=== PATIENT | male | born 1955 | race Caucasian/White ===

== ENCOUNTER 2019-08-13 08:59 | Outpatient (CLI) | payer MEDICARE, OTHER, SELFPAY ==
--- NOTE | ~2019-08-13 | US_ITS ---
EXAMINATION: US venous doppler [facility] EXAM DATE: 08/13/2019 09:49 INDICATION: DVT follow-up. TECHNIQUE: Multiple grayscale, color flow and Doppler images of the left lower extremity deep venous system obtained and reviewed. Comparison is made to prior examination from 05/19/2019. FINDINGS: LEFT SIDE Common femoral: -------- Normal. Profunda femoral: ------- Normal. Femoral: Normal. Popliteal: Thrombosed. Posterior tibial: ---------Thrombosed. Peroneal: Normal. Gastrocnemius: Not visualized. Soleus: Not visualized. Greater saphenous: ----- Normal. Lesser saphenous: ------ Not visualized. IMPRESSION: 1. Persistent occlusive left popliteal and posterior tibial DVT. Reviewed, dictated and finalized at location B.
== END 2019-08-13 09:00 | disposition home or self-care (01) ==
PROVIDERS: PCP Internal Medicine; Visit Provider Internal Medicine Hematology & Oncology
DX: I82.432 Acute embolism and thrombosis of left popliteal vein (principal); I82.442 Acute embolism and thrombosis of left tibial vein
CPT/HCPCS: 93971

== ENCOUNTER 2019-11-16 10:18 | Outpatient (CLI) | payer MEDICARE, OTHER, SELFPAY ==
--- NOTE | ~2019-11-16 | US_ITS ---
EXAMINATION: US venous doppler [facility] DATE: 11/16/2019 10:56 INDICATION: Deep venous thrombosis TECHNIQUE: Iniguez scale images without and with compression and Doppler images of the left lower extrem ity veins were obtained. COMPARISON: 08/13/2019 FINDINGS: There are persistent thrombosis in the left posterior tibial and popliteal veins. The left common femoral vein, profunda femoral vein, femoral vein, popliteal vein, peroneal vein, and greater saphenous vein are patent. IMPRESSION: 1. Persistent thrombosis in the left popliteal and posterior tibial veins. Reviewed, dictated and finalized at location A.
== END 2019-11-16 10:19 | disposition home or self-care (01) ==
PROVIDERS: PCP Internal Medicine; Visit Provider Internal Medicine Hematology & Oncology
DX: I82.432 Acute embolism and thrombosis of left popliteal vein (principal)
CPT/HCPCS: 93971

== ENCOUNTER 2019-12-31 07:40 | Outpatient (CLI) | payer MEDICARE, OTHER, SELFPAY ==
--- NOTE | ~2019-12-31 | NM_ITS ---
EXAMINATION: NM fredy stress w perfusion DATE: 12/31/2019 12:56 INDICATION: Dyspnea on exertion. TECHNIQUE: Rest images were obtained following intravenous administration of 9.7 mCi Tc99m tetrofosmi n (Myoview). The patient was infused intravenously with Lexiscan (regadenoson). Then, 28.3 mCi Tc99m tetrofosmin (Myoview) was administered intravenously, and stress images were obtained. Data was recon structed into short axis and horizontal and vertical long axis SPECT images. Gated SPECT images were also obtained. The patient could not perform prone imaging. COMPARISON: None. FINDINGS: There is a moderate-sized, mild, fixed perfusion defect involving left ventricular apex and apical inferior, apical lateral, and mid inferolateral segments, consistent with infarct. No reversi ble component to suggest ischemia. There is no segmental wall motion abnormality. Left ventricular ejection fraction measures 63%. IMPRESSION: 1. Moderate-sized area of mild infarct involving left ventricular apex and apical inferior, apical la teral, and mid inferolateral segments. 2. Normal left ventricular ejection fraction measuring 63%. Reviewed, dictated and finalized at location A. IMPRESSION: 1. Moderate-sized area of mild infarct involving left ventricular apex and apic al inferior, apical lateral, and mid inferolateral segments. 2. Normal left ventricular ejection fraction measuring 63%.
--- NOTE | 2019-12-31 07:49 | EST_ITS ---
Patient Info Name: Dusty Felder Age: 64 years : 1955 Gender: Male Ht: 70 in Wt: 221 lbs BSA: 2.25 m2 Exam Date: 12/31/2019 10:13 AM Patient Status: Outpatient Admit Date: 12/31/2019 Staff Ordering Physician: Terence Mayen DO Attending Provider: Terence Mayen DO Exercise Technologist: Jazz York RDCS Exercise Physician: Terence Mayen DO Exam Type: CA stress fredy w NM Study Info Indications R06.00 - Dyspnea, unspecified A regadenoson stress test was performed. Summary 1. 1. Negative lexiscan stress test for ischemic ST changes by ECG criteria. 2. 2. Stable hemodynamics throughout the test. 3. 3. Nuclear scan to follow and will be reported separately. Please correlate with it. 4. 4. Patient informed of the above results. Protocol: Lexiscan Stress ECG Details Stage: REST Duration (min): 10 min : 21 sec HR (bpm): 62 SBP (mmHg): 130 DBP (mmHg): 72 Stage: REST Duration (min): 17 min : 47 sec HR (bpm): 67 SBP (mmHg): 130 DBP (mmHg): 72 Stage: STAGE 1 Duration (min): 1 min : 0 sec HR (bpm): 88 SBP (mmHg): 129 DBP (mmHg): 61 Stage: RECOVERY Duration (min): 1 min : 0 sec HR (bpm): 93 SBP (mmHg): 128 DBP (mmHg): 64 Stage: RECOVERY Duration (min): 2 min : 0 sec HR (bpm): 76 SBP (mmHg): 128 DBP (mmHg): 64 Stage: RECOVERY Duration (min): 3 min : 0 sec HR (bpm): 85 SBP (mmHg): 129 DBP (mmHg): 68 Stage: RECOVERY Duration (min): 3 min : 4 sec HR (bpm): 86 SBP (mmHg): 129 DBP (mmHg): 68 Rest HR: 67 bpm Peak HR: 97 bpm Rest Sys BP: 130 mmHg Peak Sys BP: 129 mmHg Max Pred HR: 154 bpm % Max Pred HR: 63 % Target HR: 131 bpm Max RPP: 12,513 bpm*mmHg Termination Reason: Completed protocol Cardiac Symptoms: None Total Time: 1 min : 0 sec Rest Bailon BP: 72 mmHg Peak Bailon BP: 68 mmHg Total Dose: 0.4 mg Resting ECG Sinus rhythm. Stress ECG No ST changes. Arrhythmias None. Report Signatures
--- NOTE | 2019-12-31 07:49 | ECHO_ITS ---
Patient Info Name: Dusty Felder Age: 64 years : 1955 Gender: Male Ht: 70 in Wt: 221 lbs BSA: 2.25 m2 HR: 67 bpm BP: 134 / 93 mmHg Technical Quality: Fair Exam Date: 12/31/2019 8:10 AM Exam Location: [facility] Patient Status: Outpatient Admit Date: 12/31/2019 Staff Ordering Physician: Terence Mayen DO Door Slinger: Jazz York RDCS Attending Provider: Terence Mayen DO Referring Physician: Faheem GLEZ; Exam Type: CA echo doppler color flow Study Info Indications R06.00 - Dyspnea, unspecified Complete two-dimensional, color flow and Doppler transthoracic echocardiogram is performed. Summary 1. Left ventricular chamber dimension is normal. 2. Left ventricular systolic function is normal, estimated at 55-60%. 3. The left ventricular diastolic function is grade I diastolic dysfunction. 4. E/e' 9 is minimally elevated. 5. There is mild aortic valve sclerosis. 6. Mobile echogenic mass measuring 0.9 cmx 0.5 cm seen attached to ventricular side of left coronary cusp suggestive of vegetation. Consider CHLOE for further evaluation of possible infective endocarditis. 7. There is trace tricuspid valve regurgitation. 8. No pulmonary hypertension, estimated pulmonary arterial systolic pressure is 27 mmHg. Left Ventricle E/e' 9 is minimally elevated. Left ventricular chamber dimension is normal. Left ventricular systolic function is normal, estimated at 55-60%. The left ventricular diastolic function is grade I diastolic dysfunction. Right Ventricle Right ventricular chamber dimension is normal. Right ventricular systolic function is normal. Left Atria Left atrial chamber dimension is normal. Right Atria Right atrial chamber dimension is normal. Aortic Valve Mobile echogenic mass measuring 0.9 cmx 0.5 cm seen attached to ventricular side of left coronary cusp suggestive of vegetation. Consider CHLOE for further evaluation of possible infective endocarditis. The aortic valve is trileaflet. There is mild aortic valve sclerosis. There is no aortic valve stenosis. There is no aortic valve regurgitation. Pulmonic Valve There is no pulmonic regurgitation. Mitral Valve There is no mitral valve stenosis. There is no mitral valve regurgitation. Tricuspid Valve There is trace tricuspid valve regurgitation. No pulmonary hypertension, estimated pulmonary arterial systolic pressure is 27 mmHg. Pericardium/Pleural There is no pericardial effusion. Inferior Vena Cava Normal inferior vena cava with >50% collapse upon inspiration consistent with normal right atrial pressure, 5 mmHg. Aorta The aortic root size at the sinus of Valsalva is normal. Left Ventricular Outflow Tract Name Value Normal LVOT 2D LVOT Diameter 2.3 cm LVOT Doppler LVOT Peak Gradient 4 mmHg LVOT Mean Gradient 2 mmHg LVOT VTI 20 cm LVOT VTI/AV VTI Ratio 0.9 LVOT Stroke Volume 79 ml LVOT CO 5.0 l/min LVOT CI
== END 2019-12-31 07:41 | disposition home or self-care (01) ==
PROVIDERS: PCP Internal Medicine; Visit Provider Internal Medicine Cardiovascular Disease
DX: R06.00 Dyspnea, unspecified (principal)
CPT/HCPCS: 78452; 93017; 93306; A9502; J2785

== ENCOUNTER 2020-01-01 13:57 | Outpatient (CLI) | payer MEDICARE, OTHER, SELFPAY ==
--- NOTE | ~2020-01-01 | XR_ITS ---
XR chest 2V 01/01/2020 15:30 Indication: Preop chest x-ray. Hypertension. Procedure: PA and lateral views of the chest Comparison: 08/21/2016 Findings: Left basilar atelectasis. Heart size normal. Right lung clear. No acute osseous abnormality . Impression: 1: Left basilar atelectasis. Reviewed, dictated and finalized at location A. Impression: 1: Left basilar atelectasis.
[2020-01-01 15:54] LABS: Basophils Percent Auto 0.4 % (0.2-1.2); Eosinophils Absolute Auto 0.1 K/mm3 (0-0.3); Hematocrit 42.5 % (42.0-52.0); Hemoglobin 14.4 g/dL (14.0-18.0); Immature Granulocyte Absolute 0.02 K/mm3 (0.00-0.031); Immature Granulocyte Percent A 0.4 % (0-0.5); Immature Platelet Fraction Pct 4.2 % (0.9-11.2); Lymphocytes Absolute Auto 0.89 K/mm3 (0.9-3.2); Lymphocytes Percent Auto 17.3 % (18.3-44.2); Mean Corpuscular HGB Conc 33.9 g/dl (32-36); Mean Corpuscular Hemoglobin 30.2 pg (26-34); Mean Corpuscular Volume 89.1 fl (80-100); Mean Platelet Volume 11.1 fl (7.4-10.4); Monocytes Absolute Auto 0.3 K/mm3 (0.1-0.6); Monocytes Percent Auto 5.7 % (2.6-8.5); Neutrophils Absolute Auto 3.9 K/mm3 (1.3-6.7); Neutrophils Percent Auto 75.2 % (45.5-73.1); Platelet Count Result 148 k/mm3 (150-375); Red Blood Count 4.77 M/mm3 (4.6-6.20); Red Cell Distribution Width 14.1 % (11.5-14.5); White Blood Count 5.1 K/mm3 (4.5-10.0)
[2020-01-01 16:03] LABS: Anion Gap 10.1 mmol/L (7-16); Blood Urea Nitrogen 22 mg/dL (9-20); Carbon Dioxide 29 mmol/L (22-30); Chloride 105 mmol/L (98-107); Estimated Glomerular Filt Rate 55; Glucose 102 mg/dL (75-110); Potassium 4.1 mmol/L (3.4-5.0); Sodium 140 mmol/L (137-145)
[2020-01-01 19:04] LABS: Urine Cotinine NEGATIVE
== END 2020-01-01 13:58 | disposition home or self-care (01) ==
LOC: ANHSURGERY 14:01
PROVIDERS: PCP Internal Medicine; Visit Provider Orthopaedic Surgery
DX: M16.12 Unilateral primary osteoarthritis, left hip (principal); Z01.818 Encounter for other preprocedural examination; I10 Essential (primary) hypertension; R91.8 Other nonspecific abnormal finding of lung field
CPT/HCPCS: 36415; 71046; 80048; 80307; 85025; 85055; 87070

== ENCOUNTER 2020-03-02 12:07 | Outpatient (CLI) | payer MEDICARE, OTHER, SELFPAY ==
--- NOTE | 2020-03-02 12:30 | ECHO_ITS ---
Patient Info Name: Dusty Felder Age: 64 years : 1955 Gender: Male Ht: 70 in Wt: 215 lbs BSA: 2.22 m2 HR: 78 bpm BP: 151 / 98 mmHg Technical Quality: Good Exam Date: 03/02/2020 1:00 PM Exam Location: [facility] Patient Status: Outpatient Admit Date: 03/02/2020 Staff Ordering Physician: Terence Mayen DO [employer] Supervisor: Jayden Horvath RDCS, RT Attending Provider: Terence Mayen DO Referring Physician: Faheem GLEZ; Exam Type: CA echo doppler color flow Study Info Indications I35.8 - Other nonrheumatic aortic valve disorders Complete two-dimensional, color flow and Doppler transthoracic echocardiogram is performed. Summary 1. Complete two-dimensional, color flow and Doppler transthoracic echocardiogram is performed. 2. Left ventricular chamber dimension is normal. 3. Left ventricular systolic function is normal, estimated at 55-60%. 4. There is mildly increased left ventricular wall thickness. 5. The left ventricular diastolic function is grade I diastolic dysfunction. 6. E/e' 8 is minimally elevated. 7. Global longitudinal strain is abnormal at -13.5%. 8. Small echogenic mass measuring 0.6 x 0.5 cm attached to aortic valve which could be thrombus or non-infectious vegetation. Left Ventricle E/e' 8 is minimally elevated. Global longitudinal strain is abnormal at -13.5%. Left ventricular chamber dimension is normal. Left ventricular systolic function is normal, estimated at 55-60%. There is mildly increased left ventricular wall thickness. The left ventricular diastolic function is grade I diastolic dysfunction. Right Ventricle Right ventricular chamber dimension is normal. Right ventricular systolic function is normal. Left Atria Left atrial chamber dimension is normal. Right Atria Right atrial chamber dimension is normal. Aortic Valve Small echogenic mass measuring 0.6 x 0.5 cm attached to aortic valve which could be thrombus or non-infectious vegetation. The aortic valve is trileaflet. There is no aortic valve stenosis. There is no aortic valve regurgitation. Pulmonic Valve There is no pulmonic regurgitation. Mitral Valve There is no mitral valve stenosis. There is no mitral valve regurgitation. Tricuspid Valve There is no tricuspid valve regurgitation. Pericardium/Pleural There is no pericardial effusion. Aorta The aortic root size at the sinus of Valsalva is normal. Left Ventricular Outflow Tract Name Value Normal LVOT 2D LVOT Diameter 2.2 cm LVOT Doppler LVOT Peak Gradient 3 mmHg LVOT Mean Gradient 2 mmHg LVOT VTI 17 cm LVOT VTI/AV VTI Ratio 0.7 LVOT Stroke Volume 65 ml LVOT CO 5.2 l/min LVOT CI 2.3 l/min/m2 Mitral Valve Name Value Normal MV Doppler -------
== END 2020-03-02 12:08 | disposition home or self-care (01) ==
PROVIDERS: PCP Internal Medicine; Visit Provider Internal Medicine Cardiovascular Disease
DX: I35.8 Other nonrheumatic aortic valve disorders (principal)
CPT/HCPCS: 93306

== ENCOUNTER 2020-03-22 07:38 | Outpatient (CLI) | payer MEDICARE, OTHER, SELFPAY ==
[2020-03-22 09:15] LABS: Basophils Percent Auto 0.5 % (0.2-1.2); Eosinophils Absolute Auto 0.1 K/mm3 (0-0.3); Eosinophils Percent Auto 1.4 % (0-4.4); Hematocrit 43.1 % (42.0-52.0); Hemoglobin 14.1 g/dL (14.0-18.0); Immature Granulocyte Absolute 0.04 K/mm3 (0.00-0.031); Immature Granulocyte Percent A 0.9 % (0-0.5); Immature Platelet Fraction Pct 4.6 % (0.9-11.2); Lymphocytes Absolute Auto 0.86 K/mm3 (0.9-3.2); Lymphocytes Percent Auto 19.8 % (18.3-44.2); Mean Corpuscular HGB Conc 32.7 g/dl (32-36); Mean Corpuscular Hemoglobin 30.1 pg (26-34); Mean Corpuscular Volume 92.1 fl (80-100); Mean Platelet Volume 10.8 fl (7.4-10.4); Monocytes Absolute Auto 0.3 K/mm3 (0.1-0.6); Monocytes Percent Auto 6.9 % (2.6-8.5); Neutrophils Absolute Auto 3.1 K/mm3 (1.3-6.7); Neutrophils Percent Auto 70.5 % (45.5-73.1); Platelet Count Result 141 k/mm3 (150-375); Red Blood Count 4.68 M/mm3 (4.6-6.20); Red Cell Distribution Width 13.4 % (11.5-14.5); White Blood Count 4.3 K/mm3 (4.5-10.0)
[2020-03-22 09:18] LABS: INR 2.7; Partial Thromboplastin Time 34.2 SECONDS (22.3-36.8); Prothrombin Time 28.4 Seconds (11.1-14.7)
[2020-03-22 09:19] LABS: Albumin Level 4.2 g/dL (3.5-5.1); Anion Gap 5 mmol/L (8-16); Blood Urea Nitrogen 19 mg/dL (9-20); Calcium 8.7 mg/dL (8.4-10.2); Carbon Dioxide 30 mmol/L (22-30); Chloride 107 mmol/L (98-107); Estimated Glomerular Filt Rate > 60; Glucose 112 mg/dL (75-110); Potassium 4.2 mmol/L (3.4-5.0); Sodium 142 mmol/L (137-145); Urine Cotinine NEGATIVE
[2020-03-22 09:27] LABS: Hemoglobin A1C 5.7 % (<5.7)
== END 2020-03-22 07:39 | disposition home or self-care (01) ==
PROVIDERS: Anesthesiology; PCP Internal Medicine; Visit Provider Orthopaedic Surgery
DX: Z01.818 Encounter for other preprocedural examination (principal); M16.12 Unilateral primary osteoarthritis, left hip; Z79.01 Long term (current) use of anticoagulants
CPT/HCPCS: 36415; 80048; 80307; 82040; 83036; 85025; 85055; 85610; 85730; 87070

== ENCOUNTER 2020-04-04 00:15 | Outpatient (CLI) | payer MEDICARE, OTHER, SELFPAY ==
[2020-04-04 19:58] LABS: SARS-CoV-2 RNA PCR Negative
== END 2020-04-04 00:16 | disposition home or self-care (01) ==
LOC: ANHCOVIDDT 00:15
PROVIDERS: PCP Internal Medicine; Visit Provider Orthopaedic Surgery
DX: Z01.812 Encounter for preprocedural laboratory examination (principal); Z20.828 Contact with and (suspected) exposure to other viral communicable diseases
CPT/HCPCS: 87635; C9803; U0003

== ENCOUNTER 2020-04-06 02:03 | Day surgery (SDC) | payer MEDICARE, OTHER, SELFPAY ==
[2020-01-01 14:19] VITALS: BP 144/78; PULSE 86; RESP 20; TEMP 36.8; O2SAT 97
[2020-01-01 14:43] VITALS: BMI 31.9
--- NOTE | 2020-01-15 08:16 | P.HP_ITS ---
H&P: HPI History of Present Illness Date/Time: 01/15/20 08:16 Chief complaint: OA left hip Narrative: Dusty Felder is a 64 year old male [facility] Surgical History Surgical History History of carpal tunnel release Hx of appendectomy Hx of hemorrhoidectomy Social History Social History Smoking status: Never smoker Alcohol intake: never Substance use: never Spiritual care concerns: No Meds Home Medications and Allergies Home Medications Medication Instructions Recorded Confirmed Type atorvastatin 20 mg tablet 20 mg PO DAILY #30 tablet 11/19/19 01/08/20 Rx fenofibrate 160 mg tablet 160 mg PO DAILY #30 tablet 11/20/19 01/08/20 Rx apixaban 5 mg tablet 5 mg PO BID 12/10/19 01/08/20 History omega-3 fatty acids 1,000 mg 1,000 mg PO BID 12/10/19 01/08/20 History capsule lisinopril 10 mg DAILY 01/01/20 01/08/20 History warfarin 5 mg tablet 7.5 mg PO DAILY #30 tablet 01/08/20 Rx Allergies Allergy/AdvReac Type Severity Reaction Status Date / Time No Known Allergies Allergy Verified 01/08/20 13:48
[2020-03-22 07:52] VITALS: BMI 32.9
[2020-03-22 08:40] VITALS: BP 153/83; PULSE 79; RESP 16; TEMP 37.1; O2SAT 100
--- NOTE | 2020-04-04 12:39 | PM.IMHP ---
H&P: HPI History of Present Illness Date/Time: 04/04/20 12:39 Chief complaint: OA left hip Narrative: Dusty Felder is a 64 year old male of Dr. Munguia who presents today for an anterior left total hip arthroplasty. patient has been having progressively worsening symptoms with regard to his severe arthritis in his left. He has difficulty walking and difficulty with most daily activities. Unfortunately is unable take anti-inflammatories, he is on Coumadin for a growth on his aortic valve. Prior to that had spontaneous DVT May of 2019. 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 He is miserable with the symptoms with this hip feels that he would rather proceed with total hip arthroplasty rather continue nonsurgical treatment. Review of Systems Review of Systems: All systems reviewed & are unremarkable except as noted in HPI and below PMFSH Past Medical History Medical History Chronic low back pain Deep vein thrombosis Left groin pain Ulnar nerve impingement Surgical History Surgical History History of carpal tunnel release Hx of appendectomy Hx of hemorrhoidectomy Family History Family History Father Family history of heart disease in male family member before age 55 Social History Social History Smoking status: Never smoker Second hand tobacco smoke exposure: No Additional smoking assessment comments: DENIES ANY FORM OF TOBACCO/NICOTINE USE Alcohol intake: never Substance use: never Spiritual care concerns: No Meds Home Medications and Allergies Home Medications Medication Instructions Recorded Confirmed Type lisinopril 10 mg PO DAILY 01/01/20 03/22/20 History atorvastatin 40 mg tablet 40 mg PO DAILY #30 tablet 01/20/20 03/22/20 Rx icosapent ethyl 1 gram capsule 2 gm PO BID #120 cap 01/20/20 03/22/20 Rx fenofibrate 160 mg PO QAM 03/22/20 03/22/20 History omega-3 fatty acids [Fish Oil] 1,000 mg PO BID 03/22/20 03/22/20 History warfarin 7.5 mg PO HS 03/22/20 03/22/20 History Allergies Allergy/AdvReac Type Severity Reaction Status Date / Time No Known Allergies Allergy Verified 03/22/20 08:00 Exam Narrative: Exam Narrative: 64-year-old male he is 5 ft 8 and 221. he walks with cane. Skin around the left hip and groin area is all normal. He has swelling or tenderness in the calf. His left hip flexes to 85? with pain in the groin, external rotation is 30? and internal rotation 20? short of neutral closing him severe groin pain. Stinchfield maneuver causes him groin pain. He has normal abduction strength. He has no tenderness over the trochanter. Quad strength is normal. 2+ posterior tibial pulse and 1+ dorsalis pedis pulse. Resp: Auscultation: clear to auscultation bilaterally Cardio: Rate: regular rate Rhythm: regular rhythm and abnormal rhythm Assessment and Plan Additional Plan Patient has severe arthritis of left hip with rather severe symptoms. Again he feels he is ready to proceed with total hip arthroplasty rather continue nonsurgical treatment. Surgical procedures well as the risks and complications were discussed in detail and all questions answered will proceed. Patient has seen cardiology, he had a stress test done in December which no ischemia or ST changes. He did have a fixed defect suggesting previous infarct. Echocardiogram from December of this year showed ejection fraction 55-60% with grade 1 diastolic dysfunction. It did show the mobile mass attached to the aortic valve suggesting vegetation. This was evaluated for possible infection was found to be negative. He has had a repeat echo done on March 02 of this year which showed that the nodule has shrunk. Patient was switched off of his Eliquis 2 Coumadin becaus
[2020-04-06] VITALS (14 sets, daily range): BP systolic 108–158; BP diastolic 67–88; PULSE 71–101; RESP 10–18; TEMP 36.1–36.8; O2SAT 94–99; BMI 32.1
--- NOTE | ~2020-04-06 | XR_ITS ---
EXAMINATION: XR hip LT 1V w AP pelvis DATE: 04/06/2020 12:28 INDICATION: Postoperative evaluation following left total hip arthroplasty TECHNIQUE: Anteroposterior and lateral views of the left hip were obtained. COMPARISON: Intraoperative radiograph dated 04/06/2020 FINDINGS: Interval placement of a left total hip arthroplasty which appears well seated in near anatomic alignm ent. No fracture. Osteoarthritis at the right hip with mild nonuniform joint space narrowing but with prominent marginal osteophytes. Enthesophytes at the bilateral lesser and greater trochanters. Surgi truong drain projects over the soft tissues anterolateral to the proximal left femur along with a small amount of likely postoperative soft tissue gas. IMPRESSION: 1. Left total hip arthroplasty, negative for postoperative purposes. Reviewed, dictated and finalized at location A. GAGE FUNDER
--- NOTE | ~2020-04-06 | XR_ITS ---
EXAMINATION: XR surgery orthopedic DATE: 04/06/2020 12:28 INDICATION: Left total hip arthroplasty TECHNIQUE: Single fluoroscopic spot image of the left hip was obtained during procedure performed by Dr. Danielson. Radiologist was not present for the imaging or procedure. The amount of fluoroscopy time used during this procedure was 0.9 minutes. COMPARISON: None FINDINGS: Noncemented left total hip arthroplasty which appears well seated in near-anatomic alignment. The stoney tabular component is affixed with at least a single screw. No fracture. Expected postoperative gas in the soft tissues about the greater trochanter. IMPRESSION: 1. Expected appearance post left total hip arthroplasty. See procedure note for further detail. Reviewed, dictated and finalized at location A. ILIZER LOADER
[2020-04-06] MEDS: LACTATED RINGERS 1,000 ML 30 ML IV CONT ×2 (06:45→12:30)
--- NOTE | 2020-04-06 06:48 | WPDANESEPPF ---
Anes - Initial Pre Proc Eval Procedure: Operation Date: 04/06/20 07:30 Proposed Procedures p Left Total Hip Arthroplasty, Anterior Approach - Royce Danielson MD Date/Time: 04/06/20 06:48 Surgeon: Royce Danielson MD Pre Op Diagnosis: OA left hip Patient Data Age: 64 Gender: M Height: 5 ft 10.5 in Weight: 105.6 kg Last Vital Signs Temp 37.1 C 03/22/20 08:40 Pulse 79 03/22/20 08:40 Resp 16 03/22/20 08:40 BP 153/83 H 03/22/20 08:40 Pulse Ox 100 03/22/20 08:40 Allergies Allergy/AdvReac Type Severity Reaction Status Date / Time No Known Allergies Allergy Verified 03/22/20 08:00 Home Medications Medication Instructions Recorded Confirmed Type lisinopril 10 mg PO DAILY 01/01/20 03/22/20 History atorvastatin 40 mg tablet 40 mg PO DAILY #30 tablet 01/20/20 03/22/20 Rx icosapent ethyl 1 gram capsule 2 gm PO BID #120 cap 01/20/20 03/22/20 Rx fenofibrate 160 mg PO QAM 03/22/20 03/22/20 History omega-3 fatty acids [Fish Oil] 1,000 mg PO BID 03/22/20 03/22/20 History warfarin 7.5 mg PO HS 03/22/20 03/22/20 History Patient hx anesthesia problems: none Family hx anesthesia problems: none PMFSH Past Medical History Medical History Benign essential hypertension Chronic low back pain Deep vein thrombosis Dyslipidemia Left groin pain Obstructive sleep apnea Ulnar nerve impingement Surgical History Surgical History History of carpal tunnel release Hx of appendectomy Hx of hemorrhoidectomy Family History Family History Father Family history of heart disease in male family member before age 55 Social History Social History Smoking status: Never smoker Second hand tobacco smoke exposure: No Additional smoking assessment comments: DENIES ANY FORM OF TOBACCO/NICOTINE USE Alcohol intake: never Substance use: never Living arrangements: with family Spiritual care concerns: No Anes - Eval Final PreProcedure Day of Procedure 04/06/20 06:48 Patient weight: obese Heart: regular rate and rhythm Lungs: clear to auscultation Airway: Mallampati scale class II Neurological: alert and oriented Last oral intake: >/= 8 hours ASA classification: III Emergent: no Anesthetic plan: proceed Anesthesia type and monitoring: general ETT and standard monitoring Informed Consent: The patient's anesthetic plan and its attendant risks and benefits were discussed with the patient/family/POA. Questions were solicited and answers provided to the satisfaction of the patient/family/POA.
[2020-04-06] MEDS: ACETAMINOPHEN 500 MG TABLET 1000 MG PO ×2 (06:56→18:16)
--- NOTE | 2020-04-06 07:19 | WPDHPUPDATE1 ---
History and Physical Update Update Date/Time: 04/06/20 07:19 History and Physical has been reviewed, including an updated exam of the patient. There are NO changes in the patient's condition. Risks, benefits, and alternatives have been discussed and questions answered. Patient agrees to proceed with procedure.
[2020-04-06 07:52] LABS: INR 1.1; Prothrombin Time 14.5 Seconds (11.1-14.7)
[2020-04-06] MEDS: ceFAZolin 2 GM/D5W 50 ML 2 GM/50 ML BAG IVPB (08:02)
[2020-04-06] MEDS: ceFAZolin SODIUM 1 GM VIAL 3 GM IRRIGATION (08:16)
[2020-04-06] MEDS: ceFAZolin SODIUM 1 GM VIAL IV PUSH (12:00)
[2020-04-06] MEDS: KETOROLAC 15 MG/ML VIAL (*BKC) IV PUSH (12:00)
--- NOTE | 2020-04-06 12:14 | SUR.OPER ---
EBL 600ML CELL SAVER; 250ML SEE ANESTHESIA RECORD
--- NOTE | 2020-04-06 12:25 | PM.PROC ---
Procedure Note - Detailed Date of procedure: 04/06/20 Pre-op diagnosis: OA left hip Post-op diagnosis: same Procedure performed: DAA left JAVID Description of procedure: Patient was brought to the operating room and general anesthesia was administered. He received 2 g of Ancef and weight based vancomycin preoperatively. We did not use tranexamic acid because of his thrombophilia. SCDs were placed on the calves he was transferred to the OSI Hayes table and the left hip prepped and draped usual fashion. A 10 cm longitudinal incision was made starting about 2-1/2 cm lateral to the ASIS. The fascia over the tensor fascia leticia was exposed and longitudinally incised. Fascia was elevated off the anterior 1/2 the tensor fascia leticia muscle and the interval between tensor fascia leticia and rectus femoris developed. The crossing branches of ascending branch of lateral femoral circumflex vessels were isolated ligated with suture and divided. Ileal capsular is elevated off anterior capsule. The hip was abducted and internally rotated and gluteus minimus elevated off the lateral capsule. Capsulotomy was performed. Femoral neck osteotomy according to preoperative templating was performed. A napkin ring of bone was removed and the femoral head was removed. It measured 51 mm diameter. The acetabulum was exposed. Provisional removal of extensive osteophytes was performed. Fractured osteophytes were noted anterior superiorly. Labrum was excised. The leg was externally rotated extended and the interval between piriformis tendon and conjoined tendon was incised allowing the piriformis to foot posteriorly and the conjoined tendon to partially recess. The leg back in the horizontal position the acetabulum was prepared. We reamed up to 51 mm trialed and we could see that we did have to ream to the medial wall to get adequate coverage anteriorly and posteriorly. The 51 trial was quite tight. We reamed to 52 mm and impacted the 52 mm depuy pinnacle cup at 40? of abduction and anteversion such that the anterior aspect of the cup was 1-2 mm under the anterior wall and the posterior shell was about flush with the posterior wall. This did not take into account the large extra capsular osteophytes that were present. The single screw was placed in the ilium and the 36 mm inner diameter liner placed. We then removed the very large osteophytes that were present soup come Vietnamese Stark around the acetabulum. We plan to use Celebrex for 6 weeks for prophylaxis against heterotopic bone formation. We then prepared the femur and broached up to a size 6 and trialed and the +5 neck seemed to be just a little bit loose. The leg lengths though looked equal on trialing. I elected to countersink the broach 2 mm and calcar plane and on trialing with the 8.5 neck we had appropriate stability and maintain equal leg lengths. The 6 broach still had a little bit of play after the trialing and we broached to a size 7 which was much tighter and would sink to the level of the the calcar planed neck but not further and there was no plate varus valgus or torsional stress on the broach. The size 7 actis standard offset stem was chosen and this was impacted and seated fully. On trialing once again the +5 was too loose the 8.5 head appropriate stability and gave us equal leg lengths. The 8.5 x 36 mm ceramic head was impacted on the clean and dried trunnion after irrigation of the wound with antibiotic solution hip reduced stability reconfirmed. Local anesthetic cocktail was injected. The fascia was closed with 1. Running Vicryl the skin with 2 subcutaneous Vicryl and glue drain placed in the subcutaneous layer. EBL is 600 cc. Two hundred forty-two were given back as Cell Saver blood. He received 1/3 g of Ancef a time wound closure. There are no known complications. We expect to allow him to be weight-bearing as tolerated with walker or cane immediately. Implants: Depuy Actis Anesthesia: JOSE Surgeon: Royce Loja
--- NOTE | 2020-04-06 15:08 | ADMGEN ---
Addendum entered by Rosangela Corona RN 04/06/20 15:09: Below note should be 04/06/20 at 1430 Original Note: This patient, Dusty Felder, was admitted to 2 Medical Room 248-01. Patient/family oriented to hospital policies and general routines including ID bracelet, bed and alarms, visiting hours, pain management, procedures, bathroom and other care routines, personal items, smoking policy, room service/diet, and visiting hours. Information on how to activate the Rapid Response Team has been discussed. Patient/Family are encouraged to report perceived risks to care and to ask questions if they do not understand what they are told or what they should do.
[2020-04-06] MEDS: oxyCODONE HCL (*CRX) 5 MG TAB IR PO ×2 (16:24→20:10)
[2020-04-06] MEDS: SENNA/DOCUSATE SODIUM TABLET 2 TAB PO (18:15)
[2020-04-06] MEDS: OMEGA 3 POLYUNSAT FATTY ACIDS 1 GM CAP 2 GM PO (18:15)
[2020-04-06] MEDS: WARFARIN (*PBKC) 10 MG TABLET PO (18:15)
[2020-04-06] MEDS: FAMOTIDINE 20 MG TABLET PO (20:03)
[2020-04-06] MEDS: CELECOXIB 200 MG CAPSULE PO (20:03)
[2020-04-06] MEDS: ENOXAPARIN 30 MG/0.3 ML SYRINGE SUB-Q (20:03)
[2020-04-07 00:04] VITALS: BP 123/72; PULSE 108; RESP 20; TEMP 36.8; O2SAT 95
[2020-04-07] MEDS: oxyCODONE HCL (*CRX) 5 MG TAB IR PO ×4 (00:37→12:27)
[2020-04-07] MEDS: ACETAMINOPHEN 500 MG TABLET 1000 MG PO ×3 (00:37→11:29)
[2020-04-07 04:04] VITALS: BP 128/59; PULSE 93; RESP 18; TEMP 37; O2SAT 97
[2020-04-07 05:59] LABS: Basophils Percent Auto 0.1 % (0.2-1.2); Eosinophils Percent Auto 0.3 % (0-4.4); Hematocrit 32.4 % (42.0-52.0); Hemoglobin 10.7 g/dL (14.0-18.0); Immature Granulocyte Absolute 0.03 K/mm3 (0.00-0.031); Immature Granulocyte Percent A 0.4 % (0-0.5); Lymphocytes Absolute Auto 0.63 K/mm3 (0.9-3.2); Lymphocytes Percent Auto 8.2 % (18.3-44.2); Mean Corpuscular Hemoglobin 30.2 pg (26-34); Mean Corpuscular Volume 91.5 fl (80-100); Mean Platelet Volume 11.1 fl (7.4-10.4); Monocytes Absolute Auto 0.7 K/mm3 (0.1-0.6); Monocytes Percent Auto 8.7 % (2.6-8.5); Neutrophils Absolute Auto 6.3 K/mm3 (1.3-6.7); Neutrophils Percent Auto 82.3 % (45.5-73.1); Platelet Count Result 118 k/mm3 (150-375); Red Blood Count 3.54 M/mm3 (4.6-6.20); Red Cell Distribution Width 13.3 % (11.5-14.5); White Blood Count 7.7 K/mm3 (4.5-10.0)
[2020-04-07 06:06] LABS: INR 1.2; Prothrombin Time 15.3 Seconds (11.1-14.7)
[2020-04-07 06:09] LABS: Anion Gap 2 mmol/L (8-16); Blood Urea Nitrogen 22 mg/dL (9-20); Calcium 7.5 mg/dL (8.4-10.2); Carbon Dioxide 30 mmol/L (22-30); Chloride 105 mmol/L (98-107); Estimated CRCL calculation 61 ml/min; Estimated Glomerular Filt Rate 55; Glucose 134 mg/dL (75-110); Sodium 137 mmol/L (137-145)
--- NOTE | 2020-04-07 07:21 | PM.PNORT ---
Progress Note: A&P Additional Plan POD 1 alert pain is min, INR-1.2, on coumadin with bridging lovenox, wd-dry drain to come out this am, pt was up to chair last night for 90 min-doing well, plan to have PT work with pt today then send home this afternoon, will set up HH for PT and INR draws at home, NVI, labs-reviewed from today Subjective Subjective Date/Time Seen: 04/07/20 07:21 Objective Data Vital Signs Vital Signs: Vital Signs - 24 hr 04/06/20 12:30 04/06/20 12:45 04/06/20 13:00 Temperature 36.2 C L Pulse Rate 88 76 82 Respiratory Rate 12 15 18 Blood Pressure 108/67 150/84 H 153/84 H Pulse Oximetry 98 98 98 04/06/20 13:15 04/06/20 13:30 04/06/20 13:45 Temperature 36.1 C L Pulse Rate 79 80 78 Respiratory Rate 15 10 L 13 Blood Pressure 150/86 H 147/82 H 158/84 H Pulse Oximetry 97 99 99 04/06/20 14:00 04/06/20 14:15 04/06/20 14:40 Temperature 36.4 C Pulse Rate 74 72 83 Respiratory Rate 12 13 14 Blood Pressure 150/83 H 150/83 H 146/75 H Pulse Oximetry 95 95 96 04/06/20 14:55 04/06/20 15:25 04/06/20 17:04 Temperature 36.3 C L 36.6 C 36.6 C Pulse Rate 87 95 101 H Respiratory Rate 14 16 16 Blood Pressure 145/78 H 136/82 142/88 H Pulse Oximetry 97 94 99 04/06/20 20:04 04/07/20 00:04 04/07/20 04:04 Temperature 36.8 C 36.8 C 37.0 C Pulse Rate 98 108 H 93 Respiratory Rate 18 20 18 Blood Pressure 125/72 123/72 128/59 L Pulse Oximetry 97 95 97 Intake/Output Intake/Output: Intake & Output 04/04/20 04/05/20 04/06/20 04/07/20 23:59 23:59 23:59 23:59 Intake Total 2040 250 Output Total 150 670 Balance 1890 -420 Meds/Results Medications: Active Medications Generic Name Dose Route Start Last Admin Trade Name Freq PRN Reason Stop Dose Admin Acetaminophen 1,000 mg 04/06/20 18:00 04/07/20 05:03 Acetaminophen 500 Mg Tablet PO 1,000 mg Q6HR ANGUS Administration Al Hydrox/Mg Hydrox/Simethicone 30 ml 04/06/20 14:19 Mag Hydrox/Al Hydrox/Simeth 30 Ml Udc PO Q6H PRN Indigestion Atorvastatin Calcium 40 mg 04/07/20 09:00 Atorvastatin 40 Mg Tablet PO DAILY REPLACED BY [facility] Celecoxib 200 mg 04/06/20 21:00 04/06/20 20:03 Celecoxib 200 Mg Capsule PO 200 mg DAILY ANGUS Administration Enoxaparin Sodium 30 mg 04/06/20 21:00 04/06/20 20:03 Enoxaparin 30 Mg/0.3 Ml Syringe SUB-Q 30 mg Q12HR ANGUS Administration Famotidine 20 mg 04/06/20 21:00 04/06/20 20:03 Famotidine 20 Mg Tablet PO 20 mg Q12HR ANGUS Administration Fenofibrate 160 mg 04/07/20 09:00 Fenofibrate 160 Mg Tablet PO QAM REPLACED BY [facility] Fish Oil 2 gm 04/06/20 17:00 04/06/20 18:15 [place] 3 Polyunsat Fatty Acids 1 Gm Cap PO 2 gm BID ANGUS Administration Hydroxyzine HCl 50 mg 04/06/20 14:19 Hydroxyzine Hcl 25 Mg Tablet PO Q4H PRN Itching Cefazolin Sodium 1 gm in 50 mls @ 100 mls/hr 04/06/20 16:00 04/07/20 01:05 Ancef 1 Gm/D5w 50 Ml Pm IVPB 04/07/20 08:29 Infused Q8H REPLACED BY [facility] Infusion Vancomycin HCl 1,000 mg in 250 mls @ 250 mls/hr 04/06/20 19:00 04/07/20 06:57 Vancomycin 1,000 Mg/D5w 250 Ml IVPB 04/07/20 07:59 200 mls/hr Q12H REPLACED BY [facility] Administration Lisinopril 10 mg 04/07/20 09:00 Lisinopril 10 Mg Tablet PO DAILY ANGUS Magnesium Hydroxide 30 ml 04/06/20 14:19 Magnesium Hydroxide Susp 30 Ml Udc PO BID PRN Constipation Morphine Sulfate 2 mg 04/06/20 14:19 Morphine Sulfate (*Crx) 2 Mg/Ml Inj IV PUSH Q3H PRN Pain Rated 7-10 Naloxone HCl 0.1 mg 04/06/20 14:19 Naloxone Hcl 0.4 Mg/Ml Vial IV PUSH Q2M PRN Opiate Reversal Ondansetron HCl 4 mg 04/06/20 14:19 Ondansetron Inj 4 Mg/2 Ml Vial IV PUSH Q4H PRN Nausea And Vomiting Oxycodone HCl 5 mg 04/06/20 17:00 04/07/20 05:04 Oxycodone Hcl (*Crx) 5 Mg Tab Ir PO 5 mg Q4HR ANGUS Administration Oxycodone HCl 5 mg 04/06/20 14:19 Oxycodone Hcl (*Crx) 5 Mg Tab Ir PO Q4H PRN Pain Rated 4-6 Polyethylene Gl
--- NOTE | 2020-04-07 07:32 | PM.DS ---
DS: Admitting Diagnosis Admitting Diagnosis Admitting Diagnosis: OA left hip DS: Summary Time Spent with Patient Time attestation: 64-year-old male who underwent left total hip arthroplasty anterior approach on . Underwent procedure without any complications postoperatively he has been afebrile vital signs stable neurovascular intact his wound is dry. His drain is out. He was up to the chair the day of surgery and will work with Physical therapy on postop day 1. He is weight-bearing as tolerated. He is on Coumadin 10 mg at this point with bridging Lovenox. Will set up home health to check INRs daily, he will remain on the Lovenox until his Coumadin is therapeutic. He is going home with oxycodone for pain as well as Celebrex 200 mg. Postop day 1 his hemoglobin was 10.7 and platelets were 118. His creatinine elevated to 1.3 and preoperatively is 1.1. We will recheck a BMP tomorrow along with his INR. Patient is advised to keep leg elevated prevent swelling. He is also going home on MiraLax and Senokot for constipation. Patient was advised any questions concerns once he goes home he should call the office otherwise I will see him at this point to date. DS: Data Data Completed and Pending Labs on day of discharge: Labs from last 24 hours 04/07/20 04/07/20 04/07/20 05:07 05:07 05:07 WBC 7.7 RBC 3.54 L Hgb 10.7 L D Hct 32.4 L MCV 91.5 MCH 30.2 MCHC 33.0 RDW 13.3 Plt Count 118 L MPV 11.1 H Immature Gran % (Auto) 0.4 Neut % (Auto) 82.3 H Lymph % (Auto) 8.2 L Martin % (Auto) 8.7 H Eos % (Auto) 0.3 Baso % (Auto) 0.1 L Lymph # (Auto) 0.63 L Martin # (Auto) 0.7 H Eos # (Auto) 0.0 Baso # (Auto) 0.0 Abs Immat Gran (auto) 0.03 Absolute Neuts (auto) 6.3 Absolute Nucleated RBC 0.0 Nucleated RBC % 0.0 PT 15.3 H INR 1.2 Sodium 137 Potassium 4.0 Chloride 105 Carbon Dioxide 30 Anion Gap 2 L BUN 22 H Creatinine 1.30 Estim Creat Clear Calc 61 Estimated GFR 55 L Glucose 134 H Calcium 7.5 L Blood Type Antibody Screen 04/06/20 04/06/20 06:37 06:37 WBC RBC Hgb Hct MCV MCH MCHC RDW Plt Count MPV Immature Gran % (Auto) Neut % (Auto) Lymph % (Auto) Martin % (Auto) Eos % (Auto) Baso % (Auto) Lymph # (Auto) Martin # (Auto) Eos # (Auto) Baso # (Auto) Abs Immat Gran (auto) Absolute Neuts (auto) Absolute Nucleated RBC Nucleated RBC % PT 14.5 INR 1.1 Sodium Potassium Chloride Carbon Dioxide Anion Gap BUN Creatinine Estim Creat Clear Calc Estimated GFR Glucose Calcium Blood Type A Negative Antibody Screen Negative Discharge Plan Discharge Patient Disposition: Home, Self-Care Discharge Instructions: ROYCE DANIELSON M.D [facility], [place] [address] [place] [address] POST-OPERATIVE DISCHARGE INSTRUCTIONS ANTERIOR TOTAL HIP ARTHROPLASTY 1. Move toes/feet up and down every hour while awake. 2. Be up walking every hour while awake. 3. Use cane in hand opposite of side of hip surgery or walker as comfort allows. Avoid sitting in a chair unless eating, receiving visitors or using the toilet. 4. When resting, lie on back with leg elevated above heart to minimize swelling. Significant swelling could indicate a blood clot and if this occurs, call the office (or go to the ER) to have a venous ultrasound performed. 5. Wound Care: Keep dry sponge on wound for 2 weeks. Use minimal tape. 6. Follow weight bearing status as instructed. 7. May shower with dressing off. Patient Instructions: Warfarin (By mouth), Precautions after Total Joint Replacement Surgery (GEN), Total Hip Replacement (DC), Pain Management After Surgery (DC) Stand Alone Forms: General Discharge Instructions Follow-up/Referrals: Royce Danielson MD [Physician] - Keep
--- NOTE | 2020-04-07 07:44 | P.PNAN_ITS ---
Anes - Prog Note Post-Op Date/Time: 04/07/20 07:44 Cardiovascular status: normal Respiratory status: normal Airway patency: baseline Mental status: baseline Post-Op hydration status: normal Vital Signs: Last Vital Signs Temp 37.0 C 04/07/20 04:04 Pulse 93 04/07/20 04:04 Resp 18 04/07/20 04:04 BP 128/59 L 04/07/20 04:04 Pulse Ox 97 04/07/20 04:04 Pain Score (VAS): 06/12 I/O: Intake & Output 04/06/20 04/06/20 04/07/20 15:59 23:59 07:59 Intake Total 1200 840 250 Output Total 150 670 Balance 1200 690 -420 Laboratory Tests 04/07/20 05:07 04/07/20 05:07 04/06/20 04/06/20 04/07/20 06:37 06:37 05:07 WBC 7.7 RBC 3.54 L Hgb 10.7 L D Hct 32.4 L MCV 91.5 MCH 30.2 MCHC 33.0 RDW 13.3 Plt Count 118 L MPV 11.1 H Immature Gran % (Auto) 0.4 Neut % (Auto) 82.3 H Lymph % (Auto) 8.2 L [place] % (Auto) 8.7 H Eos % (Auto) 0.3 Baso % (Auto) 0.1 L Lymph # (Auto) 0.63 L [place] # (Auto) 0.7 H Eos # (Auto) 0.0 Baso # (Auto) 0.0 Abs Immat Gran (auto) 0.03 Absolute Neuts (auto) 6.3 Absolute Nucleated RBC 0.0 Nucleated RBC % 0.0 PT 14.5 INR 1.1 Sodium Potassium Chloride Carbon Dioxide Anion Gap BUN Creatinine Estim Creat Clear Calc Estimated GFR Glucose Calcium Blood Type A Negative Antibody Screen Negative 04/07/20 04/07/20 05:07 05:07 WBC RBC Hgb Hct MCV MCH MCHC RDW Plt Count MPV Immature Gran % (Auto) Neut % (Auto) Lymph % (Auto) [place] % (Auto) Eos % (Auto) Baso % (Auto) Lymph # (Auto) [place] # (Auto) Eos # (Auto) Baso # (Auto) Abs Immat Gran (auto) Absolute Neuts (auto) Absolute Nucleated RBC Nucleated RBC % PT 15.3 H INR 1.2 Sodium 137 Potassium 4.0 Chloride 105 Carbon Dioxide 30 Anion Gap 2 L BUN 22 H Creatinine 1.30 Estim Creat Clear Calc 61 Estimated GFR 55 L Glucose 134 H Calcium 7.5 L Blood Type Antibody Screen Post-procedural complaints: none Patient Feedback: Patient satisfied with anesthetic care.
[2020-04-07] MEDS: SENNA/DOCUSATE SODIUM TABLET 2 TAB PO (08:39)
[2020-04-07] MEDS: OMEGA 3 POLYUNSAT FATTY ACIDS 1 GM CAP 2 GM PO (08:40)
[2020-04-07] MEDS: FAMOTIDINE 20 MG TABLET PO (08:40)
[2020-04-07] MEDS: ENOXAPARIN 30 MG/0.3 ML SYRINGE SUB-Q (08:40)
[2020-04-07] MEDS: CELECOXIB 200 MG CAPSULE PO (08:40)
[2020-04-07] MEDS: ATORVASTATIN 40 MG TABLET PO (08:41)
[2020-04-07] MEDS: FENOFIBRATE 160 MG TABLET PO (08:41)
[2020-04-07] MEDS: lisinopriL 10 MG TABLET PO (08:42)
[2020-04-07] MEDS: polyethylene glycoL 3350 17 GM POWD.PACK PO (08:42)
[2020-04-07 08:54] VITALS: RESP 16; O2SAT 96
[2020-04-07 10:00] VITALS: BP 121/66; PULSE 90; RESP 16; TEMP 36.7; O2SAT 95
--- NOTE | 2020-04-07 10:02 | PM.IMCN ---
Assessment and Plan Assessment and plan (1) Osteoarthritis of left hip: Code(s): M16.12 - Unilateral primary osteoarthritis, left hip Status: Acute Assessment and Plan: POD 1 Left total hip arthroplasty per Dr. Danielson. Patient appears to be doing well postoperatively and appears to be discharging home today with HH therapy. Post op care, pain management, PT/OT, DVT ppx per primary service Patient okay for discharge from medical standpoint. F/u with Ortho per their instructions (2) Aortic valve mass: Code(s): I35.8 - Other nonrheumatic aortic valve disorders Status: Acute Assessment and Plan: Thrombus or non-infectious vegetation on aortic valve on Echo for pre-op clearance. Follows Dr. Mayen as an outpatient and has been on warfarin therapy for treatment. Per EMR, warfarin was to be held 5 days prior to surgery. Warfarin initiated last night per Ortho. Orthopedic Surgery has arranged for patient to resume warfarin at normal dose after discharge and to be bridged with lower dose of Lovenox to prevent bleeding. Daily INR checks arranged per Ortho through . Continue with therapeutic regimen per Orthopedic surgery; warfarin 7.5 daily and Lovenox at 30 mg Q12 hr after discharge INR goal to be 2-3 F/u with Dr. Mayen per their instructions F/u with Dr. Hector for outpatient work up for hematologic disorders (3) Dyslipidemia: Code(s): E78.5 - Hyperlipidemia, unspecified Status: Acute Assessment and Plan: Continue with home medications (4) Benign essential hypertension: Code(s): I10 - Essential (primary) hypertension Status: Acute Assessment and Plan: BP 120s today; appears to be well controlled today. A bit elevated priyank-operatively yesterday Continue with lisinopril F/u PCP after discharge Additional Plan Thank you for allowing the Hospitalist team to care for this patient during their stay. We will continue to follow with you. Okay for discharge from a medical standpoint. Please call with any questions Collaborating Physician for this H&P is Dr. Garica DOS: 04/07/2020 at roughly 0945 HPI Data of Consult Consult date: 04/07/20 Requesting Physician: Royce Danielson MD Primary Care Provider: Shaun Munguia, Consult Narrative Narrative: Dusty Felder is a 64 year old male with history of HTN, DVT left leg (previously on Eliquis), thrombosis on aortic valve (currently on warfarin therapy), dyslipidemia, and OA of left hip who presented to the hospital on 04/06 for elective left total hip athroplasty per Dr. Danielson, POD1; Hospitalist service consulted for medical management of comorbid conditions. Patient has been having left hip pain due to OA for some time, affecting his ambulation and ADLs; after discussion with Dr. Danielson, patient elected to proceed with left hip arthroplasty yesterday with no immediate complications. Patient states he feels well today; thinks he performed well with PT/OT and states Orthopedic Surgery have arranged for him to be discharged home with HH therapy/lab draws. He rates his pain today a 3/10. Has full sensation in his left LE. No other complaints at the moment. Denies f/c/s, headaches, dizziness, lightheadedness, cp/palpitations, sob/cough, n/v/d/c, abd pain, changes in BMs, dysuria, hematuria, cloudy urine, calf pain/swelling. Review of Systems Review of Systems: All systems reviewed & are unremarkable except as noted in HPI and below PMFSH Past Medical History Medical History Aortic valve mass Benign essential hypertension Chronic low back pain Deep vein thrombosis Dyslipidemia Left groin pain Obstructive sleep apnea Pre-diabetes Ulnar nerve impingement Surgical History Surgical History (Updated
== END 2020-04-07 14:05 | disposition home health service (06) ==
LOC: ANHSURGERY 05:49 → ANH2MED 14:21
PROVIDERS: Physician Assistant Surgical; PCP Internal Medicine; Visit Provider Orthopaedic Surgery
PROC: (CPT 27130; principal; 2020-04-06 07:30)
DX: M16.12 Unilateral primary osteoarthritis, left hip (principal); I10 Essential (primary) hypertension; I35.8 Other nonrheumatic aortic valve disorders; E78.5 Hyperlipidemia, unspecified; G47.33 Obstructive sleep apnea (adult) (pediatric); E66.9 Obesity, unspecified; Z68.32 Body mass index [BMI] 32.0-32.9, adult; Z79.01 Long term (current) use of anticoagulants; Z86.718 Personal history of other venous thrombosis and embolism
CPT/HCPCS: 27130; 36415; 73501; 80048; 85025; 85610; 86850; 86900; 86901; 97110; 97116; 97161; 97165; A9270; C1776; J0171; J0330; J0690; J1100; J1170; J1650; J1885; J2250; J2270; J2370; J2405; J2704; J2710; J2795; J3010; J3370; J7120

== ENCOUNTER 2021-03-22 14:24 | Outpatient (CLI) | payer MEDICARE, OTHER, SELFPAY ==
--- NOTE | 2021-03-22 14:38 | ECHO_ITS ---
Patient Info Name: Dusty Felder Age: 65 years : 1955 Gender: Male Ht: 70 in Wt: 216 lbs BSA: 2.23 m2 HR: 74 bpm BP: 156 / 94 mmHg Exam Date: 03/22/2021 2:49 PM Exam Location: [facility] Patient Status: Outpatient Admit Date: 03/22/2021 Staff Ordering Physician: Terence Mayen DO Poultry Hatchery Laborer: Jayden Horvath, LYNDSAY, RT Attending Provider: Terence Mayen DO Referring Physician: Faheem GLEZ; Exam Type: CA echo dop color flow w con Study Info Indications I35.0 - Nonrheumatic aortic (valve) stenosis Complete two-dimensional, color flow and Doppler transthoracic echocardiogram is performed. Strain analysis performed. Summary 1. Complete two-dimensional, color flow and Doppler transthoracic echocardiogram is performed. 2. Left ventricular chamber dimension is mildly enlarged. 3. Left ventricular systolic function is normal, estimated at 55-60%. 4. There is mildly increased left ventricular wall thickness. 5. The left ventricular diastolic function is grade I diastolic dysfunction. 6. E/e' 6 is not elevated. 7. Global longitudinal strain is abnormal at -15.6%. 8. There is moderate aortic valve sclerosis. Left Ventricle E/e' 6 is not elevated. Global longitudinal strain is abnormal at -15.6%. Left ventricular chamber dimension is mildly enlarged. Left ventricular systolic function is normal, estimated at 55-60%. There is mildly increased left ventricular wall thickness. The left ventricular diastolic function is grade I diastolic dysfunction. Right Ventricle Right ventricular systolic function is normal and with normal TAPSE 2.1 cm. Right ventricular chamber dimension is normal. Left Atria Left atrial chamber dimension is normal. Right Atria Right atrial chamber dimension is normal. Aortic Valve The aortic valve is trileaflet. There is moderate aortic valve sclerosis. There is no aortic valve stenosis. There is no aortic valve regurgitation. Pulmonic Valve There is no pulmonic regurgitation. Mitral Valve There is no mitral valve stenosis. There is no mitral valve regurgitation. Tricuspid Valve There is no tricuspid valve regurgitation. Pericardium/Pleural There is no pericardial effusion. Inferior Vena Cava Normal inferior vena cava with >50% collapse upon inspiration consistent with normal right atrial pressure, 5 mmHg. Aorta The aortic root size at the sinus of Valsalva is normal. Left Ventricular Outflow Tract Name Value Normal LVOT 2D LVOT Diameter 2.21 cm LVOT Doppler LVOT Peak Gradient 4 mmHg LVOT Mean Gradient 2 mmHg LVOT VTI 19.72 cm LVOT VTI/AV VTI Ratio 0.83 LVOT Stroke Volume 75.65 ml LVOT CO 5.02 l/min LVOT CI 2.26 L/min/m2 Mitral Valve Name Value Normal MV
== END 2021-03-22 14:25 | disposition home or self-care (01) ==
LOC: ANHCARD 14:25
PROVIDERS: PCP Internal Medicine; Visit Provider Internal Medicine Cardiovascular Disease
DX: I35.8 Other nonrheumatic aortic valve disorders (principal)
CPT/HCPCS: 93306

== ENCOUNTER 2021-05-16 14:54 | Outpatient (CLI) | payer MEDICARE, OTHER, SELFPAY ==
--- NOTE | ~2021-05-16 | US_ITS ---
EXAMINATION: US venous doppler [facility] DATE: 05/16/2021 15:40 INDICATION: Acute deep vein thrombosis. TECHNIQUE: Grayscale ultrasound images without and with compression and Doppler ultrasound images of the left lower extremity veins were obtained. COMPARISON: Ultrasound 11/16/2019 FINDINGS: The visualized portions of left common femoral vein, profunda (deep) femoral vein, femoral vein, sydney catrachito veins, posterior tibial veins, and greater saphenous vein outflow are patent. There is thrombus in left popliteal vein. IMPRESSION: 1. Deep vein thrombosis again seen involving left popliteal vein. Reviewed, dictated and finalized at location A. MACHINE OPERATOR
== END 2021-05-16 14:55 | disposition home or self-care (01) ==
LOC: ANHIMG 14:56
PROVIDERS: PCP Internal Medicine; Visit Provider Internal Medicine Hematology & Oncology
DX: I82.432 Acute embolism and thrombosis of left popliteal vein (principal)
CPT/HCPCS: 93971

== ENCOUNTER 2021-08-30 12:19 | Outpatient (CLI) | payer MEDICARE, OTHER, SELFPAY ==
--- NOTE | 2021-08-30 12:39 | ECHO_ITS ---
Patient Info Name: Dusty Felder Age: 66 years : 1955 Gender: Male Ht: 71 in Wt: 212 lbs BSA: 2.22 m2 HR: 90 bpm BP: 123 / 80 mmHg Technical Quality: Good Exam Date: 08/30/2021 1:12 PM Exam Location: [facility] Patient Status: Outpatient Admit Date: 08/30/2021 Staff Ordering Physician: Terence Mayen DO Heel Dipper: Jayden Horvath RDCS, RT Attending Provider: Terence Mayen DO Referring Physician: Faheem GLEZ; Exam Type: CA echo doppler color flow Study Info Indications I35.9 - Nonrheumatic aortic valve disorder, unspecified Complete two-dimensional, color flow and Doppler transthoracic echocardiogram is performed. Strain analysis performed. Summary 1. Complete two-dimensional, color flow and Doppler transthoracic echocardiogram is performed. 2. Left ventricular chamber dimension is normal. 3. Left ventricular systolic function is normal, estimated at 60-65%. 4. The left ventricular diastolic function is grade I diastolic dysfunction. 5. E/e' 7 is not elevated. 6. Global longitudinal strain is abnormal at -14.4%. 7. Left atrial chamber dimension is mildly enlarged. 8. There is moderate aortic valve sclerosis. Left Ventricle E/e' 7 is not elevated. Global longitudinal strain is abnormal at -14.4%. Left ventricular chamber dimension is normal. Left ventricular systolic function is normal, estimated at 60-65%. The left ventricular diastolic function is grade I diastolic dysfunction. Right Ventricle Right ventricular systolic function is normal and with normal TAPSE 3.1 cm. Right ventricular chamber dimension is normal. Left Atria Left atrial chamber dimension is mildly enlarged. Right Atria Right atrial chamber dimension is normal. Aortic Valve The aortic valve is trileaflet. There is moderate aortic valve sclerosis. There is no aortic valve stenosis. There is no aortic valve regurgitation. Pulmonic Valve There is no pulmonic regurgitation. Mitral Valve There is no mitral valve stenosis. There is no mitral valve regurgitation. Tricuspid Valve There is no tricuspid valve regurgitation. Pericardium/Pleural There is no pericardial effusion. Inferior Vena Cava Normal inferior vena cava with >50% collapse upon inspiration consistent with normal right atrial pressure, 5 mmHg. Aorta The aortic root size at the sinus of Valsalva is normal. Left Ventricular Outflow Tract Name Value Normal LVOT 2D LVOT Diameter 2.3 cm LVOT Doppler LVOT Peak Gradient 6 mmHg LVOT Mean Gradient 3 mmHg LVOT VTI 23 cm LVOT VTI/AV VTI Ratio 0.9 LVOT Stroke Volume 92 ml LVOT CO 7.0 l/min LVOT CI 3.2 l/min/m2 Mitral Valve Name Value Normal MV Doppler
== END 2021-08-30 12:20 | disposition home or self-care (01) ==
LOC: ANHCARD 12:21
PROVIDERS: PCP Internal Medicine; Visit Provider Internal Medicine Cardiovascular Disease
DX: I35.8 Other nonrheumatic aortic valve disorders (principal); I51.7 Cardiomegaly
CPT/HCPCS: 93306

== ENCOUNTER 2021-10-30 12:11 | Emergency (ER) | payer MEDICARE, OTHER, SELFPAY ==
--- NOTE | ~2021-10-30 | XR_ITS ---
XR hand LT min 3V DATE: 10/30/2021 13:01 INDICATION: Wood splinter, proximal fifth metacarpal area TECHNIQUE: 4 views COMPARISON: None FINDINGS: No radiopaque soft tissue foreign body is detected. There is polyarticular osteoarthritis including first carpometacarpal, first through fourth metacarpo phalangeal and particularly multiple interphalangeal joints. No erosive change is noted. No fracture, dislocation, periosteal reaction or bone destruction. IMPRESSION: No radiopaque soft tissue foreign body is detected Polyarticular osteoarthritis Reviewed, dictated and finalized at location A.
[2021-10-30 12:35] VITALS: BP 131/77; PULSE 60; RESP 18; TEMP 36.6; O2SAT 99
--- NOTE | 2021-10-30 12:38 | ED.SKABFB ---
HPI - Skin/Abscess/Foreign Bdy General Chief complaint: Skin/Abscess/Foreign Body Stated complaint: splinter in palm of lt hand Time Seen by Provider: 10/30/21 12:38 Source: patient Mode of arrival: ambulatory Limitations: no limitations History of Present Illness HPI narrative: 66-year-old male concerned that he has a piece of splinter to left palm for 1 week. Reports that he removed it and thought that he got it all out several days has had soreness when leaning on left palm. Reports that splinter is from working on windowsill. Tetanus is up-to-date. Reports some mild erythema to left palm. No drainage. All systems reviewed and negative except as noted above. Related Data Allergies Allergy/AdvReac Type Severity Reaction Status Date / Time No Known Allergies Allergy Verified 10/30/21 12:38 Review of Systems Review of Systems: CONSTITUTIONAL: Denies fever, chills, or sweats. EYES: Denies visual changes, redness, or discharge. ENT: Denies rhinorrhea, congestion, sore throat, or otalgia. CARDIOVASCULAR: Denies chest pain, palpitations, or edema. RESPIRATORY: Denies cough or dyspnea. GASTROINTESTINAL: Denies abdominal pain, nausea, vomiting, or diarrhea. GENITOURINARY: Denies dysuria or hematuria. SKIN: Denies rash or itching. Reports possible splinter left palm. MUSCULOSKELETAL: Denies back pain, joint pain, or myalgia. NEUROLOGIC: Denies headache, numbness, or weakness. PSYCHIATRIC: Denies anxiety or depression. All other systems reviewed are negative, except as documented in HPI. [facility] Past Medical History Medical History Aortic valve mass Benign essential hypertension Chronic low back pain Deep vein thrombosis Dyslipidemia Left groin pain Obstructive sleep apnea Pre-diabetes Ulnar nerve impingement Surgical History Surgical History History of carpal tunnel release History of left hip replacement Hx of appendectomy Hx of hemorrhoidectomy Family History Family History Father Family history of heart disease in male family member before age 55 Social History Social History Social History: Patient plans to return to Home with for therapy and lab draws. He follows Dr. Mayen for his aortic valve mass, and will be following up with Dr. Hecotr for work up for clotting Smoking status: Never smoker Second hand tobacco smoke exposure: No Additional smoking assessment comments: DENIES ANY FORM OF TOBACCO/NICOTINE USE Alcohol intake: never Substance use: never Spiritual care concerns: No Comments At time of signature, agree with nursing past medical, surgical, social and family history. There is no relevant family history pertinent to the presenting complaint. Exam Narrative: GENERAL: This is a well-nourished, well-developed patient, in no apparent distress. HEAD: normocephalic, atraumatic. EYES: PERRL. Sclera clear/white. Vision is grossly intact. EARS: External ears normal NOSE: External nose normal To light that NECK: Neck supple, non-tender without lymphadenopathy, masses or thyromegaly. CARDIOVASCULAR: Regular rate and rhythm without murmurs, gallops, or rubs. RESPIRATORY: Clear to auscultation. Breath sounds equal bilaterally. No wheezes, rales, or rhonchi. SKIN: warm, Dry, intact with no suspicious lesions or rash, good texture and turgor. Slight erythema to lateral left palm. There is no drainage. No open wound. Can feel something possibly embedded in soft tissues on palpation. NEURO: awake, alert, and oriented to person, place and time. There were no obvious focal neurologic abnormalities. EXTREMITIES: Normal range of motion to all extremities. Course Course Level of Care: Express Care Visit Vital Signs Vital signs: Vital Signs Temperature 36.6 C 0
--- NOTE | 2021-10-31 18:18 | PC.NURSE ---
1816- 10/31/21 Pt called requesting medication be sent to [place] in [place] [phone]. Called [facility] verbal sent. Froylan Yoder [id number] #[phone] refills
== END 2021-10-30 13:14 | disposition home or self-care (01) ==
PROVIDERS: Emergency Provider Nurse Practitioner Family; PCP Internal Medicine
DX: S61.442A Puncture wound with foreign body of left hand, initial encounter (principal); W45.8XXA Other foreign body or object entering through skin, initial encounter; I10 Essential (primary) hypertension; E78.5 Hyperlipidemia, unspecified; G47.33 Obstructive sleep apnea (adult) (pediatric); R73.03 Prediabetes; Z86.718 Personal history of other venous thrombosis and embolism; Z96.642 Presence of left artificial hip joint
CPT/HCPCS: 73130; 99213; G0463

== ENCOUNTER 2023-03-04 10:03 | Outpatient (CLI) | payer MEDICARE, OTHER, SELFPAY ==
--- NOTE | ~2023-03-04 | US_ITS ---
EXAMINATION: US soft tissue UE LT DATE: 03/04/2023 10:34 INDICATION: Nodule/cyst at the left second digit TECHNIQUE: Multiple grayscale and Doppler ultrasound images were obtained of the region of concern at the palmar aspect of the left second digit at the level of the proximal interphalangeal joint. COMPARISON: Left hand radiographs dated 10/30/2021 FINDINGS/IMPRESSION: Nonspecific 8 x 7 x 7 mm solid very hypoechoic nodule at the region of concern which demonstrates sub tle internal vascular flow with arterial waveforms on color Doppler. The nodule appears to approach t o within 1 mm of but not to directly arise from the flexor tendon sheath. Differential includes neopl asm most likely benign but rarely malignant, lesser malformation, granuloma or other inflammatory pse udomass. Reviewed, dictated and finalized at location A.
== END 2023-03-04 10:04 | disposition home or self-care (01) ==
PROVIDERS: PCP Family Medicine; Visit Provider Family Medicine
DX: M79.662 Pain in left lower leg (principal); R22.30 Localized swelling, mass and lump, unspecified upper limb
CPT/HCPCS: 76882